=== PATIENT | male | born 1950 | race Caucasian/White ===

== ENCOUNTER 2024-11-02 09:39 | Outpatient (REF) | payer MEDICARE, SELFPAY ==
--- OUTSIDE RECORDS SUMMARY | 2024-11-02 11:04 | XMS_ITS | Clinical Summary ---
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 Name Role Phone Rhoda Moura MD Primary Care Provider Surgical History Surgery Date Site/Laterality Comments TONSILLECTOMY 9 years old PROCEDURE: HISTORICAL TONSILLECTOMY COLONOSCOPY 05/08/16 PROCEDURE: HISTORICAL COLONOSCOPY; COMMENT: adenoma and tics; repeat in 5 yrs Medical History Medical History Date Comments Hypertension DX:Hypertension Hypercholesteremia 08/06/2015 DX:Hyperchole steremia Elevated PSA DX:Elevated PSA Prostate cancer (CMS/HCC V24, CMS/HCC V28) 2015 DX:Prostate cancer ([facility]) Family History Medical History Relation Name Comments Heart attack Mother Heart failure Mother Hypertension Mother Relation Name Status Comments Daughter Alive healthy Mother Son Alive healthy Social History Tobacco Use Types Packs/Day Years Used Date Smoking Tobacco: Never Smokeless Tobacco: Never Alcohol Use Standard Drinks/Week Comments Yes 0 (1 standard drink = 0.6 oz pur e alcohol) Sex and Gender Information Value Date Recorded Sex Assigned at Not on file Legal Sex Male 8:14 AM EST Gender Identity Not on file Sexual Orientation Not on file Obstetrics History Last Filed Vital Signs Vital Sign Reading Time Taken Comments Blood Pressure 136/80 04/04/2024 2:47 PM EDT Sit ting L Arm Pulse 82 04/04/2024 2:47 PM EDT Temperature - - Respiratory Rate - - Oxygen Saturation - - Inhaled Oxygen Concentration - - Weight 101 kg (222 lb) 04/04/2024 2:47 PM EDT Height - - Body Mass Index - - Plan of Treatment Upcoming Encounters Date Type Department Care Team (Late st Contact Info) Description 04/04/2025 10:00 AM EDT Ancillary Procedure [facility] [address] [place] [phone] 04/11/2025 10:10 AM EDT Office Visit [facility] [address] [place] [phone] CycNicola laureano NP [address] [place] [address] [address] [place] [address] Health Maintenance Due Date Last Done Comments COVID-19 Vaccine (#1) 1955 RSV Immunization Adult Patients (1 - Risk 60-74 years 1-dose series) 2011 Zoster Vaccines (2 of 2) 09/20/2019 07/26/2019 Abdominal Aortic Aneurysm (AAA) Screen 06/22/2022 Cholesterol Screening (Lipid Panel) 06/22/2022 Colorectal Cancer Screening: Colonoscopy 06/22/2022 Depression Screening 06/22/2022 Falls Risk Assessment 06/22/2022 Hepatitis C Screening 06/22/2022 Medicare Annual Wellness Visit 06/22/2022 Social Influencers of Health Screening 06/22/2022 Hypertension/CHF/CAD Annual BMP Blood Test 07/04/2022 Influenza Vaccine (Season Ended) 2025 04/18/2021, 04/18/2020, 04/23/2016, Additional history exists DTaP,Tdap,and Td Vaccines (2 - Td or Tdap) 06/06/2025 06/06/2015 Pneumococcal Vaccine: 50+ Years Completed 03/01/2019, 02/26/2017 HIB Vaccines Aged Out No longer eligi ble based on patient's age to complete this topic HPV Vaccines Aged Out No longer eligi ble based on patient's age to complete this topic Hepatitis A Vaccines Aged Out No long er eligible based on patient's age to complete this topic Hepatitis B Vaccines Aged Out No long er eligible based on patient's age to complete this topic IPV Vaccines Aged Out No longer eligi ble based on patient's age to complete this topic MMR Vaccines Aged Out No longer eligi ble based on patient's age to complete this topic Meningococcal ACWY Vaccine Aged Out N o longer eligible based on patient's age to complete this topic Meningococcal B Vaccine Aged Out No l onger eligible based on patient's age to complete this topic RSV Immunization Patients Under 20 months Aged Out No longer eligible based on patient's age to complete this topic Varicella Vaccines Aged Out No longer eligible based on patient's age to complete this topic Insurance MEDICARE [facility] Care Teams [employer] Relationship Specialty Start Date End Date Rhoda Moura MD PCP - General 11/23/23
[2024-11-02 12:40] LABS: Alanine Aminotransferase 48 U/L (0-40); Alkaline Phosphatase 109 U/L (39-117); Anion Gap 10 (12-20); Aspartate Amino Transferase 29 U/L (5-37); Bilirubin Total 0.9 mg/dL (0.0-1.0); Blood Urea Nitrogen 16 mg/dL (9-16); Calcium 9.3 mg/dL (8.4-10.2); Carbon Dioxide 28 mmol/L (22-29); Chloride 110 mmol/L (96-108); Estimated Glomerular Filt Rate > 60; Glucose Random 89 mg/dL (60-115); Potassium 3.9 mmol/L (3.3-5.1); Sodium 144 mmol/L (135-145); Total Protein 6.9 g/dL (6.5-8.0)
== END 2024-11-02 09:40 | disposition home or self-care (01) ==
LOC: HO.WFDLDS 09:39
PROVIDERS: Visit Provider Internal Medicine
DX: E87.0 Hyperosmolality and hypernatremia (principal); I10 Essential (primary) hypertension; R74.8 Abnormal levels of other serum enzymes
CPT/HCPCS: 36415; 80053

== ENCOUNTER 2025-04-27 08:32 | Outpatient (REF) | payer MEDICARE, SELFPAY ==
[2025-04-27 09:39] LABS: Alanine Aminotransferase 43 U/L (0-40); Albumin Level 4.6 g/dL (3.5-5.0); Alkaline Phosphatase 106 U/L (39-117); Anion Gap 10 (12-20); Aspartate Amino Transferase 30 U/L (5-37); Blood Urea Nitrogen 12 mg/dL (9-16); Calcium 9.7 mg/dL (8.4-10.2); Carbon Dioxide 30 mmol/L (22-29); Chloride 108 mmol/L (96-108); Cholesterol 147 mg/dL (<200); Estimated Glomerular Filt Rate > 60; HDL Cholesterol 38 mg/dL (>40); Potassium 4.3 mmol/L (3.3-5.1); Sodium 144 mmol/L (135-145); Total Protein 7.8 g/dL (6.5-8.0)
== END 2025-04-27 08:33 | disposition home or self-care (01) ==
LOC: HO.LAB 08:32
PROVIDERS: PCP Internal Medicine; Visit Provider Internal Medicine
DX: R74.8 Abnormal levels of other serum enzymes (principal); E78.00 Pure hypercholesterolemia, unspecified; K76.0 Fatty (change of) liver, not elsewhere classified
CPT/HCPCS: 36415; 80053; 82172; 82465; 83695; 83718; 83721